=== PATIENT | female | born 1930 | race Caucasian/White ===

== ENCOUNTER 2016-07-05 11:04 | Outpatient (CLI) | payer MEDICARE, OTHER | END 2016-07-05 11:05 | disposition home or self-care (01) | DX: D64.9 Anemia, unspecified (principal) ==

== ENCOUNTER 2016-07-17 09:17 | Outpatient (CLI) | payer MEDICARE, OTHER | END 2016-07-17 09:18 | disposition home or self-care (01) | DX: I50.9 Heart failure, unspecified (principal); I26.99 Other pulmonary embolism without acute cor pulmonale; I08.1 Rheumatic disorders of both mitral and tricuspid valves ==

== ENCOUNTER 2017-07-15 08:00 | Outpatient (CLI) | payer MEDICARE, OTHER ==
[2017-07-15 17:42] LABS: BASOPHILS % (AUTO) 0.8 %; EOSINOPHILS % (AUTO) 0.6 %; HGB - HEMOGLOBIN 15.8 g/dL (12.0-16.0); LYMPHOCYTES # (AUTO) 2.3 10^3/uL (1.5-3.5); LYMPHOCYTES % (AUTO) 42.8 %; MEAN CORPUSCULAR HEMOGLOBIN 29.7 pg (27.0-31.0); MEAN PLATELET VOLUME 7.7 fL (7.9-10.8); MONOCYTES # (AUTO) 0.4 10^3/uL (0.0-1.0); MONOCYTES % (AUTO) 7.2 %; NEUTROPHILS # (AUTO) 2.6 10^3/uL (1.5-6.6); NEUTROPHILS % (AUTO) 48.6 %; PLT - PLATELET COUNT 214 10^3/uL (130-450); RED BLOOD COUNT 5.33 10^6/uL (4.20-5.40); RED CELL DISTRIBUTION WIDTH 14.6 % (12.0-15.0); WHITE BLOOD COUNT 5.4 x10^3/uL (4.8-10.8)
[2017-07-15 17:58] LABS: CALCIUM 8.7 mg/dL (8.5-10.3); CREATININE 1.2 mg/dL (0.4-1.0)
== END 2017-07-15 08:01 | disposition home or self-care (01) ==
LOC: LAB.F 08:00
PROVIDERS: ATTEND Nurse Practitioner Family
DX: I10 Essential (primary) hypertension (principal); D64.9 Anemia, unspecified
CPT/HCPCS: 36415; 80048; 82728; 85025

== ENCOUNTER 2017-08-08 14:20 | Outpatient (CLI) | payer MEDICARE, OTHER ==
[2017-08-08 18:18] LABS: CALCIUM 8.7 mg/dL (8.5-10.3); CREATININE 1.2 mg/dL (0.4-1.0)
== END 2017-08-08 14:21 | disposition home or self-care (01) ==
LOC: LAB.F 14:20
PROVIDERS: ATTEND Nurse Practitioner Family
DX: N18.3 Chronic kidney disease, stage 3 (moderate) (principal)
CPT/HCPCS: 36415; 80048

== ENCOUNTER 2017-08-15 12:36 | Outpatient (CLI) | payer MEDICARE, OTHER | END 2017-08-15 12:37 | disposition home or self-care (01) | LOC: DI 12:36 | PROVIDERS: ATTEND Nurse Practitioner Family | DX: I11.0 Hypertensive heart disease with heart failure (principal); I37.1 Nonrheumatic pulmonary valve insufficiency | CPT/HCPCS: 93306 ==

== ENCOUNTER 2017-08-22 12:47 | Outpatient (CLI) | payer MEDICARE, OTHER ==
--- NOTE | 2017-08-22 14:17 | Ultrasound Report ---
RENAL ULTRASOUND: 08/22/2017 CLINICAL INDICATION: Chronic kidney disease. TECHNIQUE: Real-time scanning was performed with employer relations representative static images obtained. FINDINGS: The right kidney measures 8.1 x 4.3 x 4.2 cm. Small right extrarenal pelvis is noted. No hydronephrosis, focal renal lesion, or perinephric collection is seen. The left kidney measures 8.8 x 4.4 x 4.1 cm. No hydronephrosis, focal renal lesion, or perinephric collection is present. Prevoid, the urinary bladder measures 8.8 x 5.4 x 5.2 cm, yielding a prevoid volume of 129 mL. No postvoid residual was present. Bilateral ureteral jets are seen. IMPRESSION: INCIDENTAL SMALL RIGHT EXTRARENAL PELVIS. TD: 08/22/2017 14:15
== END 2017-08-22 12:48 | disposition home or self-care (01) ==
LOC: DI 12:47
PROVIDERS: ATTEND Nurse Practitioner Family
DX: I12.9 Hypertensive chronic kidney disease with stage 1 through stage 4 chronic kidney disease, or unspecified chronic kidney disease (principal); N18.3 Chronic kidney disease, stage 3 (moderate)
CPT/HCPCS: 76770

== ENCOUNTER 2018-01-18 11:28 | Outpatient (CLI) | payer MEDICARE, OTHER | END 2018-01-18 11:29 | disposition home or self-care (01) | LOC: DI 11:28 | PROVIDERS: ATTEND Internal Medicine Cardiovascular Disease | DX: I27.20 Pulmonary hypertension, unspecified (principal); I08.1 Rheumatic disorders of both mitral and tricuspid valves | CPT/HCPCS: 93306 ==

== ENCOUNTER 2018-02-13 10:50 | Outpatient (CLI) | payer MEDICARE, OTHER ==
[2018-02-13 17:58] LABS: CALCIUM 8.8 mg/dL (8.5-10.3); CREATININE 1.2 mg/dL (0.4-1.0)
== END 2018-02-13 10:51 | disposition home or self-care (01) ==
LOC: LAB.F 10:50
PROVIDERS: ATTEND Nurse Practitioner Family
DX: N18.3 Chronic kidney disease, stage 3 (moderate) (principal); I50.810 Right heart failure, unspecified
CPT/HCPCS: 36415; 80048

== ENCOUNTER 2018-03-26 12:12 | Emergency (ER) | payer MEDICARE, OTHER ==
--- NOTE | 2018-03-26 12:37 | ED Physician Documentation ---
PD HPI LOWER EXT INJURY - Stated complaint Stated Complaint: RT FOOT INJ - Chief complaint Chief Complaint: Ext Problem - History obtained from History obtained from: Patient - History of Present Illness PD HPI LOW EXT INJURY LOCATION: Right, Foot (She injured her right foot yesterday. She was standing up to get her cell phone and twisted it and she has moderate midfoot pain. She declines pain medication. No other injuries.) Review of Systems Constitutional: reports: Reviewed and negative Cardiac: reports: Reviewed and negative Respiratory: reports: Reviewed and negative PD PAST MEDICAL HISTORY - Past Medical History Cardiovascular: Hypertension, Murmur, Other (no CAD/MD nor history of CHF.) Respiratory: None Endocrine/Autoimmune: None GI: None : None HEENT: Macular degeneration Psych: None Musculoskeletal: Osteoarthritis Derm: None - Past Surgical History Ortho: Arthroscopic surgery HEENT: Cataracts - Present Medications Home Medications: Ambulatory Orders Medication Instructions Recorded Confirmed Calcium Carbonate/Vitamin D3 1 each PO 02/13/13 02/13/13 [Calcium 600-Vit D3 200 Tablet] Metoprolol Succinate [Toprol Xl] 25 mg PO ONCE 02/13/13 02/13/13 Ferrous Sulfate [Feosol] 325 mg PO BIDWM #60 tablet 04/24/16 Guaifenesin [Mucinex] 600 mg PO BID PRN #30 tab.er.12h 04/24/16 Latanoprost 0.005% Ophth Drops 1 drops EACHEYE QPM bottle 04/24/16 [Xalatan Ophth Drops] Pantoprazole [Protonix] 40 mg PO QDAC #30 tablet 04/24/16 Rivaroxaban [Xarelto] 15 mg PO BID #42 tablet 04/24/16 - Allergies Allergies/Adverse Reactions: Allergies Allergy/AdvReac Type Severity Reaction Status Date / Time No Known Drug Allergies Allergy Verified 03/26/18 12:19 - Social History Does the pt smoke?: No Smoking Status: Never smoker Does the pt drink ETOH?: No Does the pt have substance abuse?: No - Immunizations Immunizations are current?: Yes - POLST Patient has POLST: No PD ED PE NORMAL - Vitals Vital signs reviewed: Yes - General General: Alert and oriented X 3, No acute distress - Extremities Extremities: Other (Tender over the mid metatarsals 3 through fifth. No ankle or calcaneal or proximal fibular tenderness. She is quite swollen over the lateral forefoot. Good pedal pulses and sensation.) - Neuro Neuro: Alert and oriented X 3, Normal speech Results - Vitals Vitals: Vital Signs - 24 hr 03/26/18 12:17 Temperature 36 C L Heart Rate 54 L Respiratory 18 Rate Blood Pressure 149/63 H O2 Saturation 97 Oxygen O2 Source Room air - Rads (name of study) 3v R foot Radiology: EMP read contemporaneously (normal) PD MEDICAL DECISION MAKING - Sepsis Event Vital Signs: Vital Signs - 24 hr 03/26/18 12:17 Temperature 36 C L Heart Rate 54 L Respiratory 18 Rate Blood Pressure 149/63 H O2 Saturation 97 Oxygen O2 Source Room air Departure - Departure Disposition: 01 Home, Self Care Clinical Impression: Right foot sprain Qualifiers: Encounter type: initial encounter Qualified Code(s): S93.601A - Unspecified sprain of right foot, initial encounter Condition: Good Record reviewed to determine appropriate education?: Yes Instructions: ED Sprain Foot Comments: Recheck with your doctor in a week if not better. Return if worse. Tylenol as needed for pain. Elevate it when you are able. Your blood pressure was elevated today on check into the emergency department. This does not mean that you have hypertension, it is a common phenomenon to come to the emergency department and have elevated blood pressure. I recommend that you see your primary care physician within the week to have it rechecked when you are feeling better.
--- NOTE | 2018-03-26 13:26 | XRAY Report ---
Reason: foot inj Procedure Date: 03/26/2018 Accession Number: [id number] / [id number] Procedure: XR - Foot 3 View RT CPT Code: FULL RESULT: EXAM: RIGHT FOOT RADIOGRAPHY EXAM DATE: 03/26/2018 01:03 PM. CLINICAL HISTORY: Tender over mid metatarsals after twisting foot. COMPARISON: None. TECHNIQUE: 3 views. FINDINGS: Bones: Normal. No fractures or bone lesions. Joints: Normal. No subluxations. Soft Tissues: Minimal calcification at the attachment of the Achilles tendon may indicate Achilles tendinosis. IMPRESSION: No fracture. [facility]
[2018-03-26 14:00] VITALS: BP 140/63
== END 2018-03-26 13:59 | disposition home or self-care (01) ==
LOC: ED 12:12
DX: S99.921A Unspecified injury of right foot, initial encounter (principal); X50.1XXA Overexertion from prolonged static or awkward postures, initial encounter; I10 Essential (primary) hypertension
CPT/HCPCS: 99282; 99283

== ENCOUNTER 2019-06-01 09:13 | Outpatient (CLI) | payer MEDICARE, OTHER ==
[2019-06-01 17:25] LABS: BASOPHILS # (AUTO) 0.1 10^3/uL (0.0-0.1); EOSINOPHILS % (AUTO) 0.8 %; LYMPHOCYTES # (AUTO) 2.4 10^3/uL (1.5-3.5); LYMPHOCYTES % (AUTO) 46.5 %; MEAN CORPUSCULAR HEMOGLOBIN 29.2 pg (27.0-31.0); MEAN CORPUSCULAR HGB CONC 31.3 g/dL (32.0-36.0); MEAN CORPUSCULAR VOLUME 93.2 fL (81.0-99.0); MEAN PLATELET VOLUME 10.4 fL (7.9-10.8); MONOCYTES # (AUTO) 0.4 10^3/uL (0.0-1.0); MONOCYTES % (AUTO) 8.4 %; NEUTROPHILS # (AUTO) 2.2 10^3/uL (1.5-6.6); NEUTROPHILS % (AUTO) 42.9 %; PLT - PLATELET COUNT 211 10^3/uL (130-450); RED BLOOD COUNT 5.14 10^6/uL (4.20-5.40); RED CELL DISTRIBUTION WIDTH 14.9 % (12.0-15.0); WHITE BLOOD COUNT 5.1 x10^3/uL (4.8-10.8)
[2019-06-01 17:50] LABS: ALBUMIN 4.1 g/dL (3.2-5.5); ALBUMIN/GLOBULIN RATIO 1.3 (1.0-2.2); ALKALINE PHOSPHATASE 52 IU/L (42-121); ALT ALANINE AMINOTRANSFERASE 14 IU/L (10-60); AST ASPARTATE AMINOTRANSFERASE 25 IU/L (10-42); BILIRUBIN,TOTAL 1.4 mg/dL (0.2-1.0); BUN - BLOOD UREA NITROGEN 29 mg/dL (6-20); CALCIUM 9.1 mg/dL (8.5-10.3); CARBON DIOXIDE - CO2 24 mmol/L (21-32); CHLORIDE 102 mmol/L (101-111); CHOL/HDL RATIO 3.9 (<4.4); CHOLESTEROL 190 mg/dL; CREATININE 1.4 mg/dL (0.4-1.0); GFR - MDRD 36 (>89); GLUCOSE 100 mg/dL (70-100); HDL CHOLESTEROL 49 mg/dL; LDL CHOLESTEROL,CALCULATED 128 mg/dL; LDL/HDL RATIO 2.6 (<4.4); SODIUM 137 mmol/L (135-145); TOTAL PROTEIN 7.3 g/dL (6.7-8.2); VLDL CHOLESTEROL 13 mg/dL
== END 2019-06-01 09:14 | disposition home or self-care (01) ==
LOC: LAB.S 09:13
PROVIDERS: ATTEND Registered Nurse
DX: I11.0 Hypertensive heart disease with heart failure (principal); I50.810 Right heart failure, unspecified; I36.1 Nonrheumatic tricuspid (valve) insufficiency; I37.1 Nonrheumatic pulmonary valve insufficiency; I50.9 Heart failure, unspecified
CPT/HCPCS: 36415; 80053; 80061; 83721; 84443; 85025